=== PATIENT | male | born 1950 | race Caucasian/White ===

== ENCOUNTER → 2017-09-12 | Outpatient (CLI) | payer MEDICARE, BC ==
[2017-09-12 08:52] LABS: ALBUMIN 3.8 g/dL (3.4-5.0); ALK PHOS 61 U/L (46-116); ALT (SGPT) 42 U/L (16-63); ANION GAP 8 (6-14); AST (SGOT) 21 U/L (15-37); BLOOD UREA NITROGEN 19 mg/dL (8-26); CALCIUM 9.3 mg/dL (8.5-10.1); CARBON DIOXIDE 31 mmol/L (21-32); CHLORIDE 106 mmol/L (98-107); CHOLESTEROL 129 mg/dL (0-200); CREATININE 0.9 mg/dL (0.7-1.3); DIRECT BILIRUBIN 0.1 mg/dL (0.0-0.2); GFR 84.4; GLUCOSE 129 mg/dL (70-99); HDLC 50 mg/dL (40-60); LDLC 53 mg/dL (0-100); MAGNESIUM 2.1 mg/dL (1.8-2.4); NON-HDL CHOLESTEROL 79 mg/dL (0-129); POTASSIUM 3.9 mmol/L (3.5-5.1); SODIUM 145 mmol/L (136-145); TOTAL BILIRUBIN 0.9 mg/dL (0.2-1.0); TOTAL PROTEIN 7.3 g/dL (6.4-8.2); TRIGLYCERIDES 130 mg/dL (0-150); VLDLC 26 mg/dL (0-40)
[2017-09-12 08:55] LABS: CHOLESTEROL/HDL RATIO 2.6
[2017-09-12 10:15] LABS: PROSTATE SPECIFIC ANTIGEN 0.29 ng/mL (0.00-4.00)
[2017-09-12 19:15] LABS: TESTOSTERONE TOTAL 204 ng/dL (264-916)
[2017-09-13] MEDS: REGADENOSON 0.4 MG/5 ML DISP.SYRIN. IV (08:50)
== END | disposition home or self-care (01) ==
LOC: NM 08:15
DX: R01.1 Cardiac murmur, unspecified (principal); R06.00 Dyspnea, unspecified; I10 Essential (primary) hypertension; I25.10 Atherosclerotic heart disease of native coronary artery without angina pectoris
CPT/HCPCS: 36415; 78452; 80048; 80061; 80076; 83735; 84403; 93017; 93306; 96374; 96375; 96376; A9500; G0103; J2785

== ENCOUNTER 2017-09-23 08:46 | Outpatient (CLI) | payer MEDICARE, BC ==
[2017-09-23 09:22] LABS: HEMATOCRIT 43.5 % (39.0-53.0); HEMOGLOBIN 14.3 g/dL (13.0-17.5); MEAN CORPUSCULAR HEMOGLOBIN 29 pg (25-35); MEAN CORPUSCULAR HGB CONC 33 g/dL (31-37); MEAN CORPUSCULAR VOLUME 88 fL (79-100); PLATELET COUNT 194 x10^3/uL (140-400); RED BLOOD COUNT 4.96 x10^6/uL (4.30-5.70); WHITE BLOOD COUNT 6.6 x10^3/uL (4.0-11.0)
[2017-09-23 09:24] LABS: ANION GAP 7 (6-14); BLOOD UREA NITROGEN 18 mg/dL (8-26); CALCIUM 9.6 mg/dL (8.5-10.1); CARBON DIOXIDE 30 mmol/L (21-32); CHLORIDE 106 mmol/L (98-107); GFR 74.8; GLUCOSE 121 mg/dL (70-99); POTASSIUM 3.9 mmol/L (3.5-5.1); SODIUM 143 mmol/L (136-145)
[2017-09-23] MEDS ORDERED: IOHEXOL 300 MG/ML 100ML VIAL. ×2 (09:27→10:01)
[2017-09-23] MEDS ORDERED: LIDOCAINE 2% 20 ML VIAL. (09:27)
[2017-09-23] MEDS: LIDOCAINE 2% 20 ML VIAL. IJ (09:30)
[2017-09-23] MEDS: IOHEXOL 300 MG/ML 100ML VIAL. IART (09:30)
[2017-09-23] MEDS: fentaNYL PF VIAL 100 MCG/2 ML VIAL IV (09:30)
[2017-09-23] MEDS: MIDAZOLAM HCL/PF 2 MG/2 ML VIAL. IV (09:30)
[2017-09-23 09:32] LABS: INR 0.8 (0.8-1.1); PROTHROMBIN TIME PATIENT 10.8 SEC (11.7-14.0)
[2017-09-23] MEDS ORDERED: MIDAZOLAM HCL/PF 2 MG/2 ML VIAL. (10:03)
[2017-09-23] MEDS ORDERED: fentaNYL PF VIAL 100 MCG/2 ML VIAL (10:03)
[2017-09-23] MEDS ORDERED: IV NORMAL SALINE 1000ML BAG 1,000 ML IV (11:08)
[2017-09-23] MEDS ORDERED: 0.9 % SODIUM CHLORIDE 10 ML DISP.SYRIN. IV (11:15)
[2017-09-23] MEDS ORDERED: NITROGLYCERIN SUBLINGUAL 0.4 MG BOTTLE OF 25. SL (11:15)
== END 2017-09-23 13:10 | disposition home or self-care (01) ==
LOC: CCL 08:46
DX: I25.10 Atherosclerotic heart disease of native coronary artery without angina pectoris (principal); I25.82 Chronic total occlusion of coronary artery; I10 Essential (primary) hypertension; E78.5 Hyperlipidemia, unspecified; I25.2 Old myocardial infarction; E78.00 Pure hypercholesterolemia, unspecified; Z79.82 Long term (current) use of aspirin; Z79.899 Other long term (current) drug therapy; Z98.890 Other specified postprocedural states; Z82.49 Family history of ischemic heart disease and other diseases of the circulatory system; Z80.0 Family history of malignant neoplasm of digestive organs
CPT/HCPCS: 36415; 80048; 85027; 85610; 93458; 99152; 99153; C1769; C1771; C1892; G0269; J1644; J2250; J3010; Q9967

== ENCOUNTER → 2020-05-16 | Outpatient (CLI) | payer MEDICARE, BC ==
[2017-09-23 12:59] VITALS: BP 136/73
[~2020-05-16] MED LIST: AMLO1CAP3 PO; ASCO500T4 PO; ASPI325T8 PO; CHOL10003 PO; CRESTOR40 MG PO; HYDR-2145 PO; MULT-445 PO; NAPR500T8 PO; OMEG1CAP38 PO; VITA-8 PO
[2020-05-16 15:28] LABS: BASO % 0 % (0-3); EOS # 0.1 x10^3/uL (0.0-0.7); EOS % 1 % (0-3); HEMOGLOBIN 14.3 g/dL (13.0-17.5); LYMPH # 2.5 x10^3/uL (1.0-4.8); LYMPH % 33 % (24-48); MEAN CORPUSCULAR HEMOGLOBIN 30 pg (25-35); MEAN CORPUSCULAR HGB CONC 34 g/dL (31-37); MEAN CORPUSCULAR VOLUME 87 fL (79-100); MONO # 0.9 x10^3/uL (0.0-1.1); MONO % 12 % (0-9); NEUT # 4.1 x10^3/uL (1.8-7.7); NEUT % 54 % (31-73); PLATELET COUNT 189 x10^3/uL (140-400); RED BLOOD COUNT 4.84 x10^6/uL (4.30-5.70); RED CELL DISTRIBUTION WIDTH 14.2 % (11.5-14.5); WHITE BLOOD COUNT 7.6 x10^3/uL (4.0-11.0)
[2020-05-16 16:45] LABS: ALBUMIN 3.9 g/dL (3.4-5.0); CALCIUM 9.7 mg/dL (8.5-10.1); CREATININE 0.9 mg/dL (0.7-1.3); DIRECT BILIRUBIN 0.2 mg/dL (0.0-0.2); GFR 83.9; POTASSIUM 3.8 mmol/L (3.5-5.1); TOTAL BILIRUBIN 0.9 mg/dL (0.2-1.0)
[2020-05-16 16:46] LABS: CHOLESTEROL/HDL RATIO 2.8
== END ==
LOC: LAB 15:03
PROVIDERS: ATTEND Internal Medicine Cardiovascular Disease
DX: Z12.5 Encounter for screening for malignant neoplasm of prostate (principal); I25.110 Atherosclerotic heart disease of native coronary artery with unstable angina pectoris; I10 Essential (primary) hypertension; E78.5 Hyperlipidemia, unspecified
CPT/HCPCS: 36415; 80048; 80061; 80076; 85025; G0103